=== PATIENT | female | born 1985 | race African-American/Black ===

== ENCOUNTER 2020-03-05 18:10 | Inpatient (IN) | payer SELFPAY ==
[~2020-03-05] VITALS: Ht 167.6 cm; Wt 95.4 kg
[2020-03-05 19:38] LABS: RED CELL DISTRIBUTION WIDTH 12.6 % (12.3-17.7)
[2020-03-05 19:42] LABS: BASOPHIL % 0.3 % (0.2-1.3); PLATELET COUNT 329 x10^3mcL (179-408)
[2020-03-05 19:50] LABS: CALCIUM 8.5 mg/dL (8.5-10.1); CHLORIDE SERUM 98 mmol/L (98-107); CREATININE SERUM 0.8 mg/dL (0.6-1.0); GFR1 > 60 mL/min; GLUCOSE SERUM 159 mg/dL (74-106); POTASSIUM SERUM 3.4 mmol/L (3.5-5.1); SODIUM SERUM 133 mmol/L (136-145)
[2020-03-05 19:53] LABS: ALBUMIN 3.5 g/dL (3.4-5.0); ALKALINE PHOSPHATASE 47 U/L (46-116); ALT/SGPT 25 U/L (14-59); AST/SGOT 14 U/L (15-37); BILIRUBIN TOTAL 0.38 mg/dL (0.20-1.00); C REACTIVE PROTEIN 9.1 mg/dL (<=0.9); LACTIC DEHYDROGENASE (LDH) 193 U/L (100-190); TOTAL PROTEIN, SERUM 7.6 g/dL (6.4-8.2)
[2020-03-06 06:40] LABS: UA SPECIFIC GRAVITY 1.025 (1.005-1.035); microscopic required? YES; urine erythrocyte TRACE (NEGATIVE)
[2020-03-06 06:50] LABS: BASOPHIL % 0.3 % (0.2-1.3); PLATELET COUNT 308 x10^3mcL (179-408); RED CELL DISTRIBUTION WIDTH 12.8 % (12.3-17.7)
[2020-03-06 07:48] LABS: CALCIUM 8.8 mg/dL (8.5-10.1); CARBON DIOXIDE 25.7 mmol/L (21-32); CHLORIDE SERUM 98 mmol/L (98-107); CREATININE SERUM 0.7 mg/dL (0.6-1.0); GFR1 > 60 mL/min; GLUCOSE SERUM 154 mg/dL (74-106); MAGNESIUM 2.5 mg/dL (1.8-2.4); PHOSPHOROUS 3.7 mg/dL (2.5-4.9); POTASSIUM SERUM 3.6 mmol/L (3.5-5.1); SODIUM SERUM 133 mmol/L (136-145)
[2020-03-06 14:16] VITALS: BP 128/78
[2020-03-06 14:19] VITALS: Ht 167.6 cm; Wt 95.4 kg
[2020-03-06 17:36] VITALS: BP 128/82
[2020-03-06 20:55] VITALS: BP 126/82
[2020-03-07 05:48] VITALS: BP 126/72
[2020-03-07 08:09] LABS: BASOPHIL % 0.1 % (0.2-1.3); PLATELET COUNT 357 x10^3mcL (179-408); RED CELL DISTRIBUTION WIDTH 12.7 % (12.3-17.7)
[2020-03-07 08:27] LABS: ALKALINE PHOSPHATASE 49 U/L (46-116); ALT/SGPT 22 U/L (14-59); AST/SGOT 17 U/L (15-37); BILIRUBIN DIRECT 0.09 mg/dL (0.0-0.2); BILIRUBIN TOTAL 0.3 mg/dL (0.20-1.00); CALCIUM 8.9 mg/dL (8.5-10.1); CARBON DIOXIDE 26.8 mmol/L (21-32); CHLORIDE SERUM 101 mmol/L (98-107); CREATININE SERUM 0.5 mg/dL (0.6-1.0); GFR1 > 60 mL/min; GLUCOSE SERUM 85 mg/dL (74-106); MAGNESIUM 2.4 mg/dL (1.8-2.4); PHOSPHOROUS 2.7 mg/dL (2.5-4.9); POTASSIUM SERUM 3.8 mmol/L (3.5-5.1); SODIUM SERUM 138 mmol/L (136-145); TOTAL PROTEIN, SERUM 7.1 g/dL (6.4-8.2)
[2020-03-07 08:28] LABS: ALBUMIN 3.1 g/dL (3.4-5.0)
[2020-03-07 09:04] VITALS: BP 122/80
[2020-03-07 12:33] VITALS: BP 143/88
[2020-03-07] MEDS ORDERED: DECADRON6 MG PO (12:41)
[2020-03-07] MEDS ORDERED: PROAIR HFA8.5 GM INH (12:43)
[2020-03-07] MEDS ORDERED: D-10001 TAB PO (12:45)
[2020-03-07] MEDS ORDERED: ASCORBIC ACID500 M1 PO (12:46)
[2020-03-07] MEDS ORDERED: ZINC SULFATE220 M2 PO (12:46)
[2020-03-07] MEDS ORDERED: TES100 PO (12:50)
[2020-03-07] MEDS ORDERED: [UNRECOGNIZED DRUG - SUPPLY] MC (12:54)
[2020-03-07 13:08] VITALS: BP 143/88
== END 2020-03-07 14:58 | disposition home or self-care (01) | DRG 871 ==
LOC: ED 18:10 → DU 21:45 → MU 03-07 01:35
PROVIDERS: Student in an Organized Health Care Education/Training Program; ADMIT Internal Medicine; ATTEND Internal Medicine
PROC: XW033E5 Introduction of Remdesivir Anti-infective into Peripheral Vein, Percutaneous Approach, New Technology Group 5 (ICD-10-PCS; principal; 2020-03-06)
DX: A41.89 Other specified sepsis (principal); U07.1 COVID-19; J12.82 Pneumonia due to coronavirus disease 2019; J96.01 Acute respiratory failure with hypoxia; E87.1 Hypo-osmolality and hyponatremia; Z88.0 Allergy status to penicillin; Z88.8 Allergy status to other drugs, medicaments and biological substances; Z91.040 Latex allergy status; E87.6 Hypokalemia; R73.9 Hyperglycemia, unspecified
CPT/HCPCS: 36600; 83880; 85378; G0378; J1100; J1644; J3535; J7050; U0003